=== PATIENT | female | born 1960 | race Caucasian/White ===

== ENCOUNTER 2019-08-08 15:54 | Inpatient (IN) | payer OTHER ==
[~2019-08-08] VITALS: Ht 160 cm; Wt 63.5 kg
[2019-08-08] MEDS ORDERED: FAMOTIDINE 20 MG/2 ML VIAL IV ONE (16:14)
[2019-08-08] MEDS ORDERED: NITROGLYCERIN 0.4 MG SUBL SL ONE (16:15)
[2019-08-08] MEDS ORDERED: LORAZEPAM INJ 2 MG/ML VIAL IV ONE ×2 (16:15→17:15)
[2019-08-08 16:34] LABS: BASOPHILS % 0.3 % (0.0-1.0); EOSINOPHILS # (AUTO) 0.1 (0.0-0.4); EOSINOPHILS % 0.7 % (0.0-6.0); HEMATOCRIT 43.1 % (34.2-44.1); HEMOGLOBIN 14.6 g/dL (12.0-16.0); LYMPHOCYTES # (AUTO) 2.1 (1.0-3.2); LYMPHOCYTES % 20.3 % (18.0-39.1); MEAN CORPUSCULAR HEMOGLOBIN 31.7 pg (28-32); MEAN CORPUSCULAR HGB CONC 33.9 g/dL (31-35); MEAN CORPUSCULAR VOLUME 93.5 fL (81-99); MONOCYTES # (AUTO) 0.5 (0.2-0.8); NEUTROPHILS # (AUTO) 7.7 (2.1-6.9); NEUTROPHILS % 73.4 % (38.7-80.0); PLATELET COUNT 270 x10e3/uL (140-360); RED BLOOD COUNT 4.61 x10e6/uL (3.6-5.1); RED CELL DISTRIBUTION WIDTH 12.2 % (11.7-14.4)
[2019-08-08 16:57] LABS: ALBUMIN 4.6 g/dL (3.5-5.0); ALBUMIN/GLOBULIN RATIO 1.2 (0.8-2.0); CALCIUM 10.8 mg/dL (8.4-10.2)
--- NOTE | 2019-08-08 17:04 | NUR ---
During interview with patient, patient reported that she has had thoughts of suicide in the past month and more recently in the last week. The patient stated that she would "never try to hurt anyone else" by crashing her car into anyone but mentioned hanging herself or just "disappearing" altogether. Patient was objectively weepy and reported feeling "overwhelmed" and "alone". The patient reported losing a child after many years ago and stated she feels like a failure because she never had children and openly asked "what is the point of living anymore? No one would miss me. I have no children." Dr. Hayward made aware. in room 2 with the patient.
--- NOTE | 2019-08-08 17:19 | NUR ---
Per Sahra, supervisor fertilizer processing notified of need for sitter. Will send when available. RN will be with the patient until staff is provided.
[2019-08-08 17:22] LABS: CHOL/HDL RATIO 3.4 (3.0-3.6)
--- NOTE | 2019-08-08 17:22 | NUR ---
LISA consulted at [phone]. Spoke to Rigoberto. Will return call when clinical social work therapist is enroute.
[2019-08-08 17:43] LABS: CREATINE KINASE 88 IU/L (29-168)
[2019-08-08] MEDS ORDERED: METOPROLOL TARTRATE 25 MG TAB PO SCH (17:45)
[2019-08-08] MEDS ORDERED: ASPIRIN 81 MG CHEW TAB PO ONE (17:45)
[2019-08-08] MEDS ORDERED: SODIUM CHLORIDE FLUSH 10 ML SYR INJ PRN (17:45)
[2019-08-08] MEDS ORDERED: LORAZEPAM INJ 2 MG/ML VIAL IV PRN (17:45)
[2019-08-08] MEDS ORDERED: NITROGLYCERIN 0.4 MG SUBL SL PRN (17:45)
--- NOTE | 2019-08-08 17:50 | Diagnostic Imaging Report ---
EXAMINATION: CHEST 2 VIEWS INDICATION: Chest pain ^Chest Pain ^[id number] ^1730 COMPARISON: None FINDINGS: TUBES and LINES: None. LUNGS: Lungs are well inflated. Lungs are clear. There is no evidence of pneumonia or pulmonary edema. PLEURA: No pleural effusion or pneumothorax. HEART AND MEDIASTINUM: The cardiomediastinal silhouette is unremarkable. BONES AND SOFT TISSUES: No acute osseous lesion. Soft tissues are unremarkable. UPPER ABDOMEN: No free air under the diaphragm. IMPRESSION: No acute thoracic abnormality. Signed by: Dr. Dereck Salazar M.D. on 08/08/2019 5:47 PM
--- OUTSIDE RECORDS SUMMARY | 2019-08-08 18:08 | XMS REPORT ---
Author [facility] Address Unknown Phone Unavailable Care Team Providers Care Archivist Economic History Name Role Phone Karlos CUNNINGHAM Unavailable Unavailable Problems This patient has no known problems. Allergies, Adverse Reactions, Alerts This patient has no known allergies or adverse reactions. Medications This patient has no known medications. Results Test Description Test Time Test Comments Text Results Atomic Results Result Comments CHEST 2 VIEWS 2019-08-08 17:47:00 [place] [address] Patient Name: SMILEY CARR MR #: [id number] : 1960 Age/Sex: 59/F Req #: [id number] Adm Physician: Ordered by: RUBY CUNNINGHAM MD Report #: [id number] Location: ER Room/Bed: Procedure: [id number] DX/CHEST 2 VIEWS Exam Date: 08/08/19 Exam Time: 1730 REPORT STATUS: Signed EXAMINATION: CHEST 2 VIEWS INDICATION: Chest pain Chest Pain [id number] COMPARISON: None FINDINGS: TUBES and LINES: None. LUNGS: Lungs are well inflated. Lungs are clear. There is no evidence of pneumonia or pulmonary edema. PLEURA: No pleural effusion or pneumothorax. HEART AND MEDIASTINUM: The cardiomediastinal silhouette is unremarkable. BONES AND SOFT TISSUES: No acute osseous lesion. Soft tissues are unremarkable. UPPER ABDOMEN: No free air under the diaphragm. IMPRESSION: No acute thoracic abnormality. Signed by: Dr. Dereck Salazar M.D. on 08/08/2019 5:47 PM Dictated By: DERECK SALAZAR MD, MD 46 Transcribed By: COLIN on 08/08/191746 COPY TO: RUBY CUNNINGHAM MD
[2019-08-08] MEDS ORDERED: ATORVASTATIN 40 MG TAB PO SCH (21:00)
[2019-08-08] MEDS: FAMOTIDINE 20 MG TAB PO SCH (21:07)
--- NOTE | 2019-08-08 21:21 | Diagnostic Imaging Report ---
EXAMINATION: Head CT HISTORY: Facial droop, evaluate for acute stroke, depression, unable to sleep well due to stress. COMPARISON: None. TECHNIQUE: Multidetector axial images were obtained without contrast from the foramen magnum to the vertex . The images were reconstructed using brain and bone algorithms. Thin section brain images were reformatted into coronal and sagittal planes. Image quality: Motion/streaking artifact limits the evaluation of the skull base and posterior cranial fossa. Dose modulation, iterative reconstruction, and/or weight based adjustment of the mA/kV was utilized to reduce the radiation dose to as low as reasonably achievable. FINDINGS: Parenchyma: 1. A few scattered white matter hypodensities, most likely age-related minimal chronic microvascular ischemic changes. 2. No mass or hemorrhage. No CT evidence of acute territorial vascular insult. Extra-axial spaces:No abnormal density. No extra-axial fluid collections Brain volume: Normal for age. Ventricles: No hydrocephalus or displacement. Arteries: No density suggestive of thrombus. Dural sinuses: No abnormal density. Extra-axial spaces: No abnormal density. Foramen magnum: No mass, Chiari malformation, or basilar invagination. Sella: No obvious mass. Paranasal/mastoid sinuses: Imaged portions unremarkable. Skull/Scalp: No lytic or blastic lesions. No fractures. IMPRESSION: 1. No acute intracranial hemorrhage or cortical infarcts. 2. Minimal age-related matter chronic microvascular ischemic changes. Signed by: Dr. Renée Lees M.D. on 08/08/2019 9:17 PM
--- NOTE | 2019-08-08 21:51 | NUR ---
bailey from mat team has evaluated patient, patient is not at risk for active suicide and was discharged from mat services for outpatient treatment. resources were given to her at bedside. attending dr mensah notified- may discontinue suicide precautions
--- NOTE | 2019-08-08 22:31 | Consultation ---
DATE OF CONSULTATION: 08/08/2019 Cardiology Consultation REASON FOR CONSULTATION: Chest pain. HISTORY OF PRESENT ILLNESS: Ms. Rojas is a pleasant 59-year-old woman with a history of depression and anxiety and family history significant for coronary artery disease at early age in sister, who presents with complaints of nausea and vomiting as well as midsternal chest discomfort, pressure like in nature, moderate in severity and nonradiating, occurring while the patient was at rest during high levels of stress. She is also undergoing evaluation for possible suicidal ideation and is currently on one-to-one sitter watch. Symptoms have resolved since. The patient is requesting to be discharged home. Deferred disposition to Psychiatry and Primary Service. Initial set of enzymes have been negative so far. She denies any episodes of exertional component of symptoms recently and denies any previous history of exertional chest discomfort or shortness of breath. She also denies palpitations, lightheadedness, or syncope. Sister noticed while the patient was at home, she had an episode where she looked pale and had right-sided facial droop . REVIEW OF SYSTEMS: A 12-system review is negative except for as noted above. PAST MEDICAL HISTORY: As per HPI. SOCIAL HISTORY: Denies smoking, alcohol, or drugs. FAMILY HISTORY: Significant for coronary artery disease in a sister. PHYSICAL EXAMINATION: VITAL SIGNS: Temperature 99.2, heart rate 83, respiratory rate 20, blood pressure 204/85, and O2 saturation 100% on room air. The patient reports at home systolic blood pressure is usually less than 130. GENERAL: She reports being very anxious, otherwise alert and oriented. NECK: No JVD or carotid bruits. CHEST: Clear to auscultation bilaterally. CARDIOVASCULAR: Regular rate and rhythm, normal S1 and S2, no S3 or S4, no murmurs or rubs. ABDOMEN: Soft, nontender. Bowel sounds positive. EXTREMITIES: No cyanosis, clubbing, or edema. Warm distal extremities. CARDIOVASCULAR MEDICATIONS: Reviewed. LABORATORY DATA: Studies reviewed. White blood cells 10.4, hemoglobin 14.6, and platelets 270. Sodium 139, potassium 4, chloride 104, bicarbonate 21, BUN 13, creatinine 1, glucose 89, and BNP 34. Troponin I negative x1. Calcium slightly elevated at 10.8. Total protein 8.3, albumin 4.6, total bilirubin 1.2, AST 23, ALT 14, alkaline phosphatase 86, triglycerides 183, total cholesterol 205, LDL 108, and HDL 60. ASSESSMENT: 1. A 59-year-old woman presenting with atypical chest discomfort. Anxiety, depression, and possible suicidal ideation, undergoing evaluation. 2. Uncontrolled hypertension, situational in the setting of elevated stress and episode of chest discomfort. 3. Dyslipidemia. RECOMMENDATIONS: 1. Trend cardiac enzymes to rule out for AMI. 2. Obtain echocardiogram. 3. Monitor on telemetry. 4. Initiate beta-lc, aspirin, and statin. 5. I have offered inpatient stress test. The patient however currently declining this. We will revisit in the a.m. She is still understanding risks, indications, alternatives, and benefits, prefers to not have it done while in-house and serial cardiac enzymes negative . I thank Dr. Stevenson for the opportunity to participate in the care of Ms. Rojas. Please feel free to call with any questions. MD AndradeV/MODL /[id number]
[2019-08-09 01:31] LABS: CREATINE KINASE 63 IU/L (29-168)
--- NOTE | 2019-08-09 02:48 | NUR ---
CHARLEY RN GIVEN REPORT
[2019-08-09 03:48] LABS: AMPHETAMINES SCREEN,URINE NEGATIVE (NEGATIVE); BENZODIAZEPINES SCREEN,URINE NEGATIVE (NEGATIVE); PHENCYCLIDINE SCREEN,URINE NEGATIVE (NEGATIVE)
[2019-08-09 05:44] LABS: BASOPHILS # (AUTO) 0.1 (0.0-0.1); BASOPHILS % 0.5 % (0.0-1.0); EOSINOPHILS # (AUTO) 0.2 (0.0-0.4); HEMATOCRIT 40.1 % (34.2-44.1); HEMOGLOBIN 13.5 g/dL (12.0-16.0); LYMPHOCYTES # (AUTO) 2.7 (1.0-3.2); LYMPHOCYTES % 29.1 % (18.0-39.1); MEAN CORPUSCULAR HEMOGLOBIN 31.6 pg (28-32); MEAN CORPUSCULAR HGB CONC 33.7 g/dL (31-35); MEAN CORPUSCULAR VOLUME 93.9 fL (81-99); MONOCYTES # (AUTO) 0.7 (0.2-0.8); MONOCYTES % 7.5 % (4.4-11.3); NEUTROPHILS # (AUTO) 5.6 (2.1-6.9); NEUTROPHILS % 60.5 % (38.7-80.0); PLATELET COUNT 232 x10e3/uL (140-360); RED BLOOD COUNT 4.27 x10e6/uL (3.6-5.1); RED CELL DISTRIBUTION WIDTH 12.3 % (11.7-14.4)
[2019-08-09 05:52] LABS: ANION GAP 16.7 mmol/L (8-16); BLOOD UREA NITROGEN 14 mg/dL (7-26); BUN/CREATININE RATIO 15 (6-25); CALCIUM 9.6 mg/dL (8.4-10.2); CARBON DIOXIDE 21 mmol/L (22-29); CHLORIDE 109 mmol/L (98-107); CHOL/HDL RATIO 3.1 (3.0-3.6); CHOLESTEROL 165 MD/DL (0-199); CREATININE, SERUM 0.93 mg/dL (0.57-1.11); EST GLOMERULAR FILTRATION RATE > 60 ML/MIN (60-); GLUCOSE 90 mg/dL (74-118); HDL CHOLESTEROL 53 MG/DL (40-60); LDL CHOLESTEROL 95 MG/DL (60-130); POTASSIUM 3.7 mmol/L (3.5-5.1); SODIUM 143 mmol/L (136-145); TRIGLYCERIDES 86 MG/DL (0-149)
[2019-08-09] MEDS ORDERED: ASPIRIN 81 MG ENTERIC COATED PO SCH (09:00)
[2019-08-09] MEDS ORDERED: FAMOTIDINE 20 MG/2 ML VIAL IV PRN (09:00)
[2019-08-09] MEDS ORDERED: AMLODIPINE BESYLATE 5 MG TAB PO SCH (09:00)
[2019-08-09] MEDS ORDERED: ATORVASTATIN 20 MG TAB PO SCH (09:00)
[2019-08-09 11:42] LABS: CREATINE KINASE MB 1.8 ng/mL (0-5.0)
--- NOTE | 2019-08-09 12:57 | NUR ---
Pt to NM for stress test
[2019-08-09] MEDS ORDERED: REGADENOSON 0.4 MG/5 ML SYR IV ONE (13:10)
[2019-08-09] MEDS: FAMOTIDINE 20 MG TAB PO SCH (14:31)
[2019-08-09 17:05] VITALS: BP 156/67
--- NOTE | 2019-08-09 18:00 | NUR ---
PT DISCHARGED HOME WITH PRESCRIPTIONS, PT WAS ASKED TO FOLLOW UP WITH AN CLOTH OPENER HAND OF HER CHOICE AND TO FOLLOW UP WITH HER PCP IN 1 TO 2 WEEKS. IV SITE REMOVED, NO SWELLING NO REDNESS TO SITE.
[2019-08-09] MEDS ORDERED: NORVASC5 MG PO (18:05)
[2019-08-09] MEDS ORDERED: SIMVASTATIN20 MG PO (18:05)
[2019-08-09] MEDS ORDERED: ASPIRIN EC81 MG PO (18:05)
--- NOTE | 2019-08-09 19:46 | Myoview Stress Test ---
DATE OF STUDY: 08/09/2019 09:14:00 Stress Test - Treadmill ONLY INTERPRETING AND SUPERVISING PHYSICIAN: Angel Griffith MD, Interventional Cardiology. PROCEDURE INDICATION: Chest pain. INTERPRETATION: At rest, heart rate of 73, blood pressure 145/68. Resting EKG, normal sinus rhythm, normal EKG. After Lexiscan was administered, heart rate hannah to 87 beats per minute and blood pressure decreased to 100/64. There were no significant ST changes or arrhythmias throughout stress or post recovery. Myocardial perfusion reveals normal rest and stress perfusion and gated images demonstrate preserved left ventricular systolic function. Normal regional wall motion and left ventricular ejection fraction more than 70%. CONCLUSION: 1. Normal hemodynamic response to Lexiscan stress. 2. Normal electrocardiographic response to Lexiscan stress. 3. Normal myocardial perfusion at rest and post stress. 4. Preserved left ventricular systolic function with left ventricular ejection fraction more than 70%. Angel Griffith MD AFV/MODL /[id number]
--- NOTE | 2019-08-09 20:21 | Progress Note ---
DATE: 08/09/2019 Cardiology Progress Note SUBJECTIVE: Denies any chest pain or shortness of breath. OBJECTIVE: VITAL SIGNS: Temperature 97.9, heart rate 49 to 80, blood pressure 147/59, and O2 saturation 97%. GENERAL: In no acute distress, alert. NECK: No JVD. CHEST: Clear to auscultation. CARDIOVASCULAR: Regular rate and rhythm. Normal S1, S2. No S3, no S4. ABDOMEN: Soft, nontender. Bowel sounds positive. EXTREMITIES: No cyanosis, clubbing, or edema. CARDIOVASCULAR MEDICATIONS: Reviewed. On atorvastatin 20 mg at bedtime, metoprolol tartrate 25 mg every 12 hours will be discontinued and switched to amlodipine 2.5 mg every day, nitroglycerin p.r.n., aspirin 81 mg daily. STUDIES: Reviewed. Echocardiogram with preserved left ventricular systolic function. No significant valvular abnormalities. Creatinine 0.9. Hemoglobin 13.5 and platelets 232. Stress test with normal stress MPI and preserved left ventricular systolic function. TELEMETRY: Sinus bradycardia and sinus rhythm. ASSESSMENT: A 59-year-old woman, presents with atypical chest pain, history of anxiety and depression, dyslipidemia, and hypertension. Evaluated for suicidal ideation. RECOMMEND: Okay to discharge from a cardiovascular standpoint once cleared from other services, particularly from a psychiatric standpoint. Outpatient followup advised in 6 to 8 weeks. MD SHAUNA Mock/MATTHEW /[id number]
[2019-08-09] MEDS ORDERED: SIMVASTATIN 20 MG TAB PO SCH (21:00)
--- NOTE | 2019-08-10 07:48 | Discharge Summary ---
HISTORY: Ms. Rojas is a 59-year-old female, who was having chest pain off and on for three days prior to arrival. She was having substernal pressure with tightness, aching pain with gradual onset and mild shortness of breath and nausea vomiting. She vomited about five times total on different days. She reports many deadlines becoming due to having excess stress, feeling overwhelmed with depression and had suicidal ideations on admission with thoughts of hanging herself. A sitter was utilized on admission and she was cleared by Psychiatry, specifically MAT and given external resources. She no longer has a sitter and her is at the bedside. She is smiling. PAST MEDICAL HISTORY: Includes depression, anxiety, chronic low back pain, history of fall, psychological trauma of loss of her daughter 30 years ago due to and the of her parents. PAST SURGICAL HISTORY: Left eye surgery. FAMILY HISTORY: Sister had coronary artery disease and myocardial infarction. Mother had emphysema and CHF. Father had lung cancer. SOCIAL HISTORY: She denies tobacco or illicit drug use. Occasionally, has alcohol in the form of Coretta. 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 Lives with her . ALLERGIES: NO KNOWN ALLERGIES. ADMITTING DIAGNOSES: 1. Midsternal atypical chest pain, rule out myocardial infarction. 2. Acute uncontrolled hypertension, situational, likely due to stress and chest discomfort. 3. Hyperlipidemia with family history of coronary artery disease/myocardial infarction in sister. 4. Suicidal ideation with excess stress, acute on chronic anxiety/depression. DISCHARGE DIAGNOSES: 1. Midsternal atypical chest pain without myocardial infarction. 2. Acute uncontrolled hypertension, situational, likely due to stress and chest discomfort, improved. 3. Hyperlipidemia with family history of coronary artery disease/myocardial infarction in sister. 4. Suicidal ideation with excess stress, acute on chronic anxiety/depression, resolved. The patient's cardiac enzymes negative. Troponin I 0.004 and less than 0.001 and 0.001. PHYSICAL EXAMINATION: Within normal limits. Urine drug screen negative. Chest x-ray negative. CT of the head with no acute intracranial hemorrhage. B-type natriuretic peptide was 34.5. CONSULTS: Include Dr. Griffith with Cardiology. The patient underwent a stress test today, which was normal. Her ejection fraction was 60% on echo. A 12-lead EKG done yesterday showed sinus bradycardia with a heart rate of 56. The patient has been cleared by Cardiology for discharge. The patient will be discharged home with her . Activity level as tolerated. Continue cardiac diet. The patient is to follow up with PCP in 1-2 weeks, Dr. Kody Traore and follow up with Cardiology as directed. Dictated by Carmelo Sharma, JOVANI MD DONNY DelcidP/MODL /[id number]
== END 2019-08-09 18:49 | disposition home or self-care (01) | DRG 313 ==
LOC: ER 15:54 → ERHOLD 17:38 → MED/SURG 08-09 16:32
PROVIDERS: ADMIT Internal Medicine; ATTEND Internal Medicine
DX: R07.89 Other chest pain (principal); R45.851 Suicidal ideations; F32.9 Major depressive disorder, single episode, unspecified; F41.9 Anxiety disorder, unspecified; F43.0 Acute stress reaction; M54.5 Low back pain; G89.29 Other chronic pain; E78.5 Hyperlipidemia, unspecified; R00.1 Bradycardia, unspecified; Z82.49 Family history of ischemic heart disease and other diseases of the circulatory system; Z82.5 Family history of asthma and other chronic lower respiratory diseases; Z80.1 Family history of malignant neoplasm of trachea, bronchus and lung
CPT/HCPCS: 36415; 70450; 71046; 78452; 80048; 80053; 80061; 80307; 80320; 82550; 82553; 83880; 84484; 85025; 93005; 93017; 93306; 99284; A9502